=== PATIENT | male | born 1950 | race Caucasian/White ===

== ENCOUNTER → 2018-02-11 | Outpatient (CLI) | payer MEDICARE, OTHER ==
--- NOTE | 2018-02-11 19:49 | Diagnostic Imaging Report ---
Exam: Left humerus, 3 views History: Status post fall, left-sided laceration Comparison: None. Findings: There is normal bone mineralization. No acute, displaced fracture or dislocation. Degenerative changes in the glenohumeral and acromioclavicular joints. No abnormal soft tissue calcification or soft tissue defect. No soft tissue swelling. Visualized portions of the left lung are clear. Impression: 1. No acute abnormalities. Signed by: Dr. Willie Mars M.D. on 02/11/2018 7:46 PM
--- NOTE | 2018-02-11 19:50 | Diagnostic Imaging Report ---
Exam: left forearm series. History: Status post fall, laceration to fifth finger Comparison: None. Findings: Presence of overlying splint obscures fine bony detail. Normal bone mineralization. No acute, displaced fracture or dislocation, within the limitations of the study.. Joint spaces preserved. No abnormal soft tissue calcification or soft tissue defect. No soft tissue swelling. Impression: 1. Overlying splint obscures fine bony detail. No acute, displaced fracture or dislocation, within the limitations of the study. Signed by: Dr. Willie Mars M.D. on 02/11/2018 7:47 PM
--- NOTE | 2018-02-11 19:52 | Diagnostic Imaging Report ---
EXAMINATION: Left shoulder series. CLINICAL HISTORY: Status post fall. COMPARISON: None. . Discussion: The osseous structures are intact without evidence of acute, displaced fracture or dislocation. No osteolytic or osteoblastic lesions. There is no evidence of a.c. separation. Degenerative changes in the glenohumeral and acromioclavicular joints. Prominent osteophyte in the inferior surface of the distal clavicle. The soft tissues are normal. IMPRESSION: 1. No acute, displaced fracture or dislocation. 2. Degenerative changes in the glenohumeral and acromioclavicular joints. 3. Prominent osteophyte in the inferior surface of the distal clavicle. Correlate for shoulder pain, as this may result in impingement syndrome Signed by: Dr. Willie Mars M.D. on 02/11/2018 7:49 PM
--- NOTE | 2018-02-11 19:56 | Diagnostic Imaging Report ---
Exam: Left Hand Series. History: Status post fall, laceration to fifth finger Comparison: None. Findings: Presence of overlying splint secures bony detail in the oblique view. 3 views of the left hand. There is normal bone mineralization. Negative for acute, displaced fracture or dislocation. Degenerative changes with joint space narrowing and osteophyte formation predominantly in the in the distal interphalangeal joints and to a lesser degree the first carpometacarpal joint. No abnormal soft tissue calcification or mass. No cystic erosive changes.Mild soft tissue swelling in the fifth finger. No soft tissue defect. Impression: 1. No acute, displaced fracture or dislocation, within the limitations of the study 2. Findings consistent with osteoarthritis. No erosive changes. Signed by: Dr. Willie Mars M.D. on 02/11/2018 7:53 PM
== END ==
LOC: RAD 17:35
PROVIDERS: ATTEND Family Medicine
DX: M25.512 Pain in left shoulder (principal); M79.632 Pain in left forearm; M79.642 Pain in left hand

== ENCOUNTER → 2018-03-01 | Outpatient (CLI) | payer MEDICARE ==
--- NOTE | 2018-03-01 12:13 | Diagnostic Imaging Report ---
TECHNIQUE: Magnetic resonance imaging of the LEFT SHOULDER was performed WITHOUT injected contrast. HISTORY: Fall 3 weeks ago, contusion, pain, weakness COMPARISON: Left shoulder radiographs February 11, 2018 FINDINGS: MUSCLES AND TENDONS: Rotator Cuff: Tendons: Supraspinatus and Infraspinatus: Full-thickness anterior tear, the full-thickness defect measures 2.6 cm (ML) disease x 2.6 cm (AP). Minimal delamination extends to the infraspinatus myotendinous junction. Teres Minor: Intact Subscapularis: High-grade distal tearing, without complete tendon retraction. Muscles: Mild diffuse muscle atrophy. Biceps Tendon: Mild partial medial subluxation of the long head of the biceps tendon from the intertubercular groove. GLENOHUMERAL JOINT: Glenoid Labrum: Diffuse mild attenuation and complex tearing, most notably the posterior superior labrum. Articular Cartilage: Intermediate to high-grade erosions. Joint Fluid: Trace effusion and synovitis. ACROMIOCLAVICULAR JOINT: Moderate hypertrophic degenerative changes of the acromioclavicular joint. No effusion. BONE: The acromion is unremarkable. The bone marrow signal is heterogeneous, compatible with red marrow conversion, no specific evidence of a focal bone marrow replacing abnormality. No acute fracture. SOFT TISSUES: Fluid within the subacromial/subdeltoid bursa, in keeping with full-thickness rotator cuff tear. IMPRESSION: 1. Full-thickness anterior tear of the supraspinatus and the anterior fibers of the infraspinatus. 2. High-grade tearing of the subscapularis tendon, without complete tendon retraction, associated mild medial subluxation of the long head of the biceps tendon from the intertubercular groove. 3. Moderate acromioclavicular and glenohumeral degenerative changes, including degenerative tearing of the glenoid labrum. Signed by: Dangelo Yoder.Anamaria., M.M.M. on 03/01/2018 12:09 PM
== END ==
LOC: MRI 10:26
PROVIDERS: ATTEND Family Medicine
DX: M25.512 Pain in left shoulder (principal); S40.012A Contusion of left shoulder, initial encounter; R29.898 Other symptoms and signs involving the musculoskeletal system

== ENCOUNTER 2021-10-21 18:44 | Emergency (ER) | payer MEDICARE ==
[~2021-10-21] VITALS: Ht 167.6 cm; Wt 136.1 kg
[~2021-10-21 18:44] MED LIST: HYDROCHLOROTHIA25 MG PO; HYDROCODON-ACE1 EAC9 PO; LEVOTHYROXINE50 MCG PO; TESTOSTERO200 MG/11 INJ
[2021-10-21 20:00] LABS: BASOPHILS # (AUTO) 0.1 (0.0-0.1); BASOPHILS % 0.3 % (0.0-1.0); EOSINOPHILS % 0.1 % (0.0-6.0); HEMATOCRIT 44.3 % (38.2-49.6); LYMPHOCYTES % 10.7 % (18.0-39.1); MEAN CORPUSCULAR HEMOGLOBIN 28.1 pg (28-32); MEAN CORPUSCULAR HGB CONC 31.6 g/dL (31-35); MEAN CORPUSCULAR VOLUME 88.8 fL (81-99); MONOCYTES # (AUTO) 1.1 (0.2-0.8); MONOCYTES % 6.2 % (4.4-11.3); NEUTROPHILS # (AUTO) 14.3 (2.1-6.9); NEUTROPHILS % 78.1 % (38.7-80.0); PLATELET COUNT 261 x10e3/uL (140-360); RED BLOOD COUNT 4.99 x10e6/uL (4.3-5.7); RED CELL DISTRIBUTION WIDTH 15.9 % (11.7-14.4)
[2021-10-21 20:16] LABS: ALBUMIN 3.2 g/dL (3.5-5.0); ALBUMIN/GLOBULIN RATIO 0.9 (0.8-2.0); ANION GAP 15.6 mmol/L (8-16); CALCIUM 8.7 mg/dL (8.4-10.2); CREATININE, SERUM 1.3 mg/dL (0.72-1.25); POTASSIUM 3.6 mmol/L (3.5-5.1)
[2021-10-21 21:31] LABS: CLARITY,URINE CLEAR (CLEAR); COLOR,URINE YELLOW (YELLOW); KETONES,URINE NEGATIVE (NEGATIVE); LEUKOCYTE ESTERASE ,URINE NEGATIVE (NEGATIVE); NITRITE,URINE NEGATIVE (NEGATIVE); PROTEIN,URINE DIPSTICK NEGATIVE (NEGATIVE); URINE UROBILINOGEN 0.2 mg/dL (0.2 - 1)
[2021-10-21 21:33] LABS: BACTERIA,URINE FEW /HPF; EPITHELIAL CELLS,URINE FEW /LPF; MUCUS,URINE FEW (RARE); RBC,URINE 0-5 /HPF (0-5); WBC,URINE (MAN) 0-5 /HPF (0-5)
[2021-10-21 22:01] VITALS: BP 106/56
== END 2021-10-21 22:13 | disposition home or self-care (01) ==
LOC: ER 18:59
DX: D72.829 Elevated white blood cell count, unspecified (principal); Z79.52 Long term (current) use of systemic steroids; I10 Essential (primary) hypertension; E03.9 Hypothyroidism, unspecified; Z79.899 Other long term (current) drug therapy
CPT/HCPCS: 36415; 80053; 81001; 83605; 85025; 87040; 87086; 99283

== ENCOUNTER 2021-10-24 10:34 | Inpatient (IN) | payer MEDICARE ==
[2021-10-21 10:57] LABS: BASOPHILS # (AUTO) 0.1 (0.0-0.1); BASOPHILS % 0.3 % (0.0-1.0); HEMATOCRIT 45.8 % (38.2-49.6); HEMOGLOBIN 14.2 g/dL (14.0-18.0); LYMPHOCYTES # (AUTO) 2.2 (1.0-3.2); LYMPHOCYTES % 10.4 % (18.0-39.1); MEAN CORPUSCULAR VOLUME 90.3 fL (81-99); MONOCYTES # (AUTO) 1.8 (0.2-0.8); MONOCYTES % 8.6 % (4.4-11.3); NEUTROPHILS % 76.7 % (38.7-80.0); PLATELET COUNT 255 x10e3/uL (140-360); RED BLOOD COUNT 5.07 x10e6/uL (4.3-5.7); RED CELL DISTRIBUTION WIDTH 15.9 % (11.7-14.4)
[2021-10-21 11:26] LABS: ANION GAP 13.1 mmol/L (8-16); BLOOD UREA NITROGEN 22 mg/dL (7-26); BUN/CREATININE RATIO 18 (6-25); CALCIUM 8.7 mg/dL (8.4-10.2); CARBON DIOXIDE 29 mmol/L (22-29); CHLORIDE 103 mmol/L (98-107); CREATININE, SERUM 1.22 mg/dL (0.72-1.25); GLUCOSE 114 mg/dL (74-118); POTASSIUM 4.1 mmol/L (3.5-5.1); SODIUM 141 mmol/L (136-145)
[~2021-10-24] VITALS: Ht 167.6 cm; Wt 139.3 kg
[2021-10-24 11:12] LABS: BASOPHILS # (AUTO) 0.1 (0.0-0.1); BASOPHILS % 0.4 % (0.0-1.0); EOSINOPHILS # (AUTO) 0.1 (0.0-0.4); EOSINOPHILS % 0.9 % (0.0-6.0); HEMATOCRIT 47.5 % (38.2-49.6); HEMOGLOBIN 14.7 g/dL (14.0-18.0); LYMPHOCYTES # (AUTO) 3.5 (1.0-3.2); LYMPHOCYTES % 25.3 % (18.0-39.1); MEAN CORPUSCULAR HEMOGLOBIN 28.1 pg (28-32); MEAN CORPUSCULAR HGB CONC 30.9 g/dL (31-35); MEAN CORPUSCULAR VOLUME 90.8 fL (81-99); MONOCYTES # (AUTO) 1.3 (0.2-0.8); MONOCYTES % 9.7 % (4.4-11.3); NEUTROPHILS # (AUTO) 8.4 (2.1-6.9); PLATELET COUNT 259 x10e3/uL (140-360); RED BLOOD COUNT 5.23 x10e6/uL (4.3-5.7); RED CELL DISTRIBUTION WIDTH 16.7 % (11.7-14.4)
[2021-10-24] MEDS ORDERED: PIPERACILLIN/TAZOBACTAM 3.375 GM VIAL ONE (11:37)
[2021-10-24] MEDS ORDERED: CLINDAMYCIN 600MG / 50ML 50 ML IV ONE (11:38)
[2021-10-24] MEDS ORDERED: GENTAMICIN 80MG/NS 100 ML 200 ML IV ONE (11:38)
[2021-10-24] MEDS ORDERED: METOPROLOL TART25 MG PO (11:38)
[2021-10-24] MEDS ORDERED: BACITRACIN ZINC 15 GM OINT ONE (12:13)
[2021-10-24] MEDS ORDERED: Vancomycin IV 500 MG ONE ×2 (12:13→12:40)
[2021-10-24] MEDS ORDERED: GENTAMICIN SULFATE 40 MG/ML 2 ML VIAL ONE (12:38)
[2021-10-24] MEDS ORDERED: SODIUM CHLORIDE 0.9% 500ML 0 ML ONE (12:39)
[2021-10-24] MEDS ORDERED: ONDANSETRON HCL INJ 2MG/ML 2ML 2 MG/ML VIAL ONE (12:49)
[2021-10-24] MEDS ORDERED: SUCCINYLCHOLINE CHLORIDE 20 MG/ML 10ML VIAL ONE (12:49)
[2021-10-24] MEDS ORDERED: SEVOFLURANE INHAL SOLN 250 ML PEN BTL ONE (12:49)
[2021-10-24] MEDS ORDERED: LIDOCAINE HCL 2% LOCAL INJ 5 ML SDV VIAL INJ ONE (12:49)
[2021-10-24] MEDS ORDERED: EPHEDRINE SULFATE INJ 50 MG/ML VIAL ONE (12:49)
[2021-10-24] MEDS ORDERED: DEXAMETHASONE SOD PHOS INJ 4 MG/ML SDV ONE (12:49)
[2021-10-24] MEDS ORDERED: ROCURONIUM BROMIDE 10 MG/ML 5ML VIAL IV ONE (12:49)
[2021-10-24] MEDS ORDERED: POVIDONE IODINE 0.05% 0.05 % ML PO ONE (12:49)
[2021-10-24] MEDS ORDERED: PROPOFOL IV EMULSION 10 MG/ML 20 ML VIAL ONE (12:49)
[2021-10-24] MEDS ORDERED: MIDAZOLAM HCL 2 MG/2 ML VIAL ONE (13:17)
[2021-10-24] MEDS ORDERED: FENTANYL CITRATE/PF 100MCG/2 ML INJ ONE (13:17)
[2021-10-24] MEDS ORDERED: NALOXONE HCL INJ 0.4 MG/ML AMP IV PRN (14:30)
[2021-10-24] MEDS ORDERED: PHENAZOPYRIDINE HCL 100 MG TAB PO PRN (14:30)
[2021-10-24] MEDS ORDERED: ONDANSETRON HCL INJ 2MG/ML 2ML 2 MG/ML VIAL IV PRN (14:30)
[2021-10-24] MEDS ORDERED: ACETAMINOPHEN/CODEINE 300MG - 30MG TAB PO PRN (14:30)
[2021-10-24] MEDS ORDERED: DIPHENHYDRAMINE HCL 25 MG CAP PO PRN (14:30)
[2021-10-24] MEDS: MORPHINE SULFATE 1 MG/ML 30ML PCA IV PRN (14:51)
[2021-10-24 16:38] VITALS: BP 108/70
[2021-10-24 16:45] VITALS: BP 108/70
[2021-10-24] MEDS: SODIUM CHLORIDE 0.9% 1000ML 1,000 ML IV SCH (17:13)
[2021-10-24] MEDS: DOCUSATE SODIUM 100 MG CAP PO SCH (17:13)
[2021-10-24 20:00] VITALS: BP 122/63
[2021-10-24 21:00] VITALS: BP 122/63
[2021-10-24 22:02] VITALS: BP 122/63
[2021-10-25] VITALS: BP 130/67
[2021-10-25] MEDS: MORPHINE SULFATE 1 MG/ML 30ML PCA IV PRN
[2021-10-25 04:00] VITALS: BP 118/68
[2021-10-25 05:03] LABS: BASOPHILS # (AUTO) 0.1 (0.0-0.1); BASOPHILS % 0.3 % (0.0-1.0); HEMOGLOBIN 13.8 g/dL (14.0-18.0); LYMPHOCYTES # (AUTO) 1.4 (1.0-3.2); LYMPHOCYTES % 7.8 % (18.0-39.1); MEAN CORPUSCULAR HEMOGLOBIN 28.1 pg (28-32); MEAN CORPUSCULAR HGB CONC 31.4 g/dL (31-35); MEAN CORPUSCULAR VOLUME 89.6 fL (81-99); MONOCYTES # (AUTO) 1.2 (0.2-0.8); NEUTROPHILS # (AUTO) 14.5 (2.1-6.9); NEUTROPHILS % 83.3 % (38.7-80.0); PLATELET COUNT 210 x10e3/uL (140-360); RED BLOOD COUNT 4.91 x10e6/uL (4.3-5.7); RED CELL DISTRIBUTION WIDTH 16.5 % (11.7-14.4)
[2021-10-25 05:33] LABS: ANION GAP 13.1 mmol/L (8-16); CALCIUM 8.2 mg/dL (8.4-10.2); CREATININE, SERUM 1.13 mg/dL (0.72-1.25); POTASSIUM 4.1 mmol/L (3.5-5.1)
[2021-10-25] MEDS: SODIUM CHLORIDE 0.9% 1000ML 1,000 ML IV SCH (05:51)
[2021-10-25 08:01] VITALS: BP 115/65
[2021-10-25 08:32] VITALS: BP 115/65
[2021-10-25] MEDS: DOCUSATE SODIUM 100 MG CAP PO SCH (09:02)
[2021-10-25] MEDS ORDERED: HYDROCODONE/APAP 10MG-325MG TAB PO PRN (10:00)
[2021-10-25 12:03] VITALS: BP 122/66
[2021-10-25] MEDS ORDERED: LEVOFLOXACIN250 MG PO (15:07)
[2021-10-25] MEDS ORDERED: ONDANSETRON HCL 4 MG ORAL DISINTEGRATING TAB PO PRN (15:15)
[2021-10-25] MEDS ORDERED: METOPROLOL TARTRATE 25 MG TAB PO SCH (17:00)
[2021-10-26] MEDS ORDERED: LEVOTHYROXINE SODIUM 75 MCG TAB PO SCH (06:00)
[2021-10-26] MEDS ORDERED: HYDROCHLOROTHIAZIDE 25 MG TAB PO SCH (09:00)
== END 2021-10-25 15:57 | disposition home or self-care (01) | DRG 709 ==
LOC: OR 10:34 → PACU V 14:26 → MED/SURG 15:45
PROC: 0TJB8ZZ Inspection of Bladder, Via Natural or Artificial Opening Endoscopic (ICD-10-PCS; 2021-10-24)
PROC: 0VUS0JZ Supplement Penis with Synthetic Substitute, Open Approach (ICD-10-PCS; principal; 2021-10-24 12:17)
DX: N52.9 Male erectile dysfunction, unspecified (principal); I48.92 Unspecified atrial flutter; Z68.42 Body mass index [BMI] 45.0-49.9, adult; N40.1 Benign prostatic hyperplasia with lower urinary tract symptoms; R39.14 Feeling of incomplete bladder emptying; R35.1 Nocturia; E66.01 Morbid (severe) obesity due to excess calories; Z79.01 Long term (current) use of anticoagulants; I89.0 Lymphedema, not elsewhere classified; J45.909 Unspecified asthma, uncomplicated; Z98.84 Bariatric surgery status; I48.91 Unspecified atrial fibrillation; Z96.652 Presence of left artificial knee joint; Z96.612 Presence of left artificial shoulder joint; R01.1 Cardiac murmur, unspecified; E03.9 Hypothyroidism, unspecified; M19.012 Primary osteoarthritis, left shoulder; M17.12 Unilateral primary osteoarthritis, left knee; Z20.822 Contact with and (suspected) exposure to COVID-19
CPT/HCPCS: 0223U; 36415; 71046; 80048; 85025; 94799; C2622; J0330; J1100; J1580; J2001; J2250; J2270; J2405; J2543; J3010; J3370; J7030; J7040

== ENCOUNTER → 2022-09-27 | Outpatient (CLI) | payer MEDICARE ==
[~2022-09-27] MED LIST changes: +LEVOFLOXACIN250 MG PO; +METOPROLOL TART25 MG PO
== END ==
LOC: US 12:03
PROVIDERS: ATTEND Urology
DX: N18.9 Chronic kidney disease, unspecified (principal); R35.1 Nocturia
CPT/HCPCS: 76770; 76857

== ENCOUNTER → 2024-05-08 | Outpatient (REF) | payer MEDICARE | LOC: US 09:39 | PROVIDERS: ATTEND Family Medicine | DX: R17 Unspecified jaundice (principal); R53.83 Other fatigue | CPT/HCPCS: 76705 ==

== ENCOUNTER 2024-12-30 09:11 | Day surgery (SDC) | payer MEDICARE ==
[2024-12-25 11:14] LABS: BASOPHILS % 0.7 % (0.0-1.0); EOSINOPHILS % 4.0 % (0.0-6.0); LYMPHOCYTES % 26.9 % (18.0-39.1); MONOCYTES % 10.0 % (4.4-11.3); NEUTROPHILS % 58.3 % (38.7-80.0); RED CELL DISTRIBUTION WIDTH 13.7 % (11.7-14.4)
[2024-12-25 11:38] LABS: CHOL/HDL RATIO 3.5 (3.9-4.7); EST GLOMERULAR FILTRATION RATE 79.0 ML/MIN (>=60); LDL CHOLESTEROL 90.0 MG/DL (60-130)
[~2024-12-30] VITALS: Ht 167.6 cm; Wt 117.0 kg
[2024-12-30] VITALS (10 sets, daily range): BP systolic 130–179; BP diastolic 73–99; PULSE 47–62; RESP 17–21; TEMP 96.3–97.3; O2SAT 94–100
[~2024-12-30 09:11] MED LIST changes: +ASPIRIN EC81 MG PO; +MOTRIN200 MG PO; +TIZANIDINE HCL4 MG PO
[2024-12-30] MEDS: SODIUM CHLORIDE 0.9% 1000ML 1,000 ML ONE (10:15)
[2024-12-30] MEDS: DIPHENHYDRAMINE HCL 25 MG CAP ONE (11:33)
[2024-12-30] MEDS: ALPRAZOLAM 0.5 MG TAB ONE (11:34)
[2024-12-30] MEDS ORDERED: VERAPAMIL HCL 2.5 MG/ML 2 ML VIAL ONE (12:12)
[2024-12-30] MEDS ORDERED: HEPARIN SOD/SOD CHLORIDE 2,000 ML ONE (12:12)
[2024-12-30] MEDS ORDERED: LIDOCAINE HCL 2% LOCAL 20 ML VIAL ONE (12:12)
[2024-12-30] MEDS ORDERED: MIDAZOLAM HCL 2 MG/2 ML VIAL ONE ×2 (12:29→13:01)
[2024-12-30] MEDS ORDERED: FENTANYL CITRATE/PF 100MCG/2 ML INJ ONE (12:30)
== END 2024-12-30 14:30 | disposition home or self-care (01) ==
LOC: CATH LAB 09:11
PROVIDERS: ATTEND Internal Medicine Interventional Cardiology
DX: I25.10 Atherosclerotic heart disease of native coronary artery without angina pectoris (principal); I11.0 Hypertensive heart disease with heart failure; I50.9 Heart failure, unspecified; Z01.812 Encounter for preprocedural laboratory examination; Z79.82 Long term (current) use of aspirin; Z79.1 Long term (current) use of non-steroidal anti-inflammatories (NSAID); Z79.899 Other long term (current) drug therapy
CPT/HCPCS: 36415; 76937; 80053; 80061; 85025; 93458; C1887; J2003; J2250; J3010; J7030; 99153